=== PATIENT | male | born 1980 | race Caucasian/White ===

== ENCOUNTER → 2017-12-29 15:23 | Outpatient (CLI) | payer OTHER, SELFPAY ==
--- NOTE | 2017-12-29 | DI.RAD.S_ITS ---
PROCEDURE: XR CHEST 2V INDICATIONS: HEMOPTOSIS, COUGH TECHNIQUE: 2 views of the chest were acquired. COMPARISON: [facility], , CHEST 1 VIEW, 08/31/2017, 9:25. FINDINGS: Surgical changes and devices: None. Lungs and pleura: No pleural effusions or pneumothorax. Lungs are clear. Mediastinum: Mediastinal contours are normal. Heart size is normal. Bones and chest wall: No suspicious bony abnormalities. Soft tissues appear unremarkable. IMPRESSION: No acute cardiopulmonary abnormality. If hemoptysis continues, CT chest with contrast is suggested. Dictated by: Jamey Ramos M.D. on 12/29/2017 at 15:43 Approved by: Jamey Ramos M.D. on 12/29/2017 at 15:44
== END ==
PROVIDERS: Visit Provider Family Medicine
DX: R04.2 Hemoptysis (principal)
CPT/HCPCS: 71046